=== PATIENT | female | born 1990 | race Caucasian/White ===

== ENCOUNTER 2016-09-12 13:36 | Emergency (ER) | payer MEDICAID ==
[2016-09-12] MEDS ORDERED: TETRACAINE 0.5% 15 ML OPHT.BTL LEFTEYE ONE (14:08)
[2016-09-12] MEDS ORDERED: FLUORESCEIN SODIUM 1 MG STRIP OP ONE ×2 (14:08)
[2016-09-12] MEDS ORDERED: PROPARACAINE 0.5% 15 ML OPHT DROP ONE (14:08)
--- NOTE | 2016-09-12 14:21 | EDPHY ---
General Time Seen by Provider: 09/12/16 13:58 Narrative: CHIEF COMPLAINT: Left eye pain o HISTORY OF PRESENT ILLNESS: patient states she accidentally soaked her contact lens in a stronger solution than she should. This was over night and then she placed contacted around 12:30 p.m.. She immediately noted pain in the left eye removed the contact. Since then she has had moderate pain on the left eye and associated headache. She has no change in her vision other than it is painful to open the eye. No trauma to the eye. No previous incidents of this. Pain is improved at time of examination. Her pain has improved. She contacted her ophthalmology group and they recommended that she present to the emergency department. No other associated complaints or modifying factors. Tetanus is up- to-date. REVIEW OF SYSTEMS: Ten systems reviewed and are negative unless otherwise noted in the HPI EXAMINATION General Appearance: Alert, no distress Head: normocephalic, atraumatic Eyes: Pupils equal and round . EOMs intact. No hyphema. There is left conjunctival injection. No foreign body. No fluoroscein uptake. Visual arnold intact ENT, Mouth: Mucous membranes moist Neck: Normal inspection, supple, non-tender Respiratory: no respiratory distress Skin: Warm and dry, no rash Extremities: Nontender, no pedal edema Psychiatric: Mood and affect normal Visual Acuity: R: 20/25 L: 20/50 B: 20/30 DIFFERENTIAL DIAGNOSES: Including but not limited to chemical exposure, abrasion, pH disturbance MDM: chemical exposure of the left eye involving clear care contact solution with 3 % hydrogen peroxide. Her eyes feeling better at time of examination was still painful. There is no uptake of fluorescein on examination. EOMs are intact. The initial check of her pH was 8.0. We will irrigate the eye and recheck. 2:30 p.m. discussed the case with the on-call viticulture teacher Dr. Norwood. he recommends prophylaxis with Polytrim ointment as well as preservative-free artificial tears. She can use the tears as much as she needs to p.r.n. throughout the day. She is to follow up with her established legal investigator tomorrow if she does not improve but he feels that she will feel much better tomorrow morning from this. Recommend she return to the emergency department if her pain worsens or for any change in her vision throughout the day. I discussed with the patient she is comfortable with this plan SUPERVISION: This patient was independently evaluated without the aide of supervising physician. - History Smoking Status: Current some day smoker - Objective Vital Signs: Initial Vital Signs Temperature (C) 98.1 F 09/12/16 13:42 Heart Rate 72 09/12/16 13:42 Respiratory Rate 22 H 09/12/16 13:42 Blood Pressure 138/99 H 09/12/16 13:42 O2 Sat (%) 100 09/12/16 13:42 O2 Delivery Mode Room Air Allergies/Adverse Reactions: Penicillins Allergy (Verified 09/12/16 13:41) Home Medications: Medication Instructions Recorded LAMOTRIGINE 11/12/15 Polymyxin B Sulfate/Tmp [Polytrim 1 drops EACHEYE Q3HRS WHILE AWAKE 09/12/16 Opht Drops (*)] #1 bottle Medications Given: Discontinued Medications Fluorescein Sodium (Pvays-R-Cdtpq) 1 mg OP EDNOW ONE Stop: 09/12/16 14:09 Last Admin: 09/12/16 14:31 Dose: 1 mg Tetracaine HCl (Tetracaine 0.5%) 1 drops LEFTEYE ONCE ONE Stop: 09/12/16 14:09 Last Admin: 09/12/16 14:30 Dose: 1 drop Departure - Departure Disposition: Home, Routine, Self-Care Clinical Impression: Exposure to chemical irritant, Left eye pain Condition: Good Instructions: Chemical Eye [place] (ED) Additional Instructions: Follow-up with viticulture teacher or legal investigator later today or in the morning. Return to the ER for any changes in her vision or worsening pain. No contacts until seen by her eye doctor Referrals: Karma Rosa MD [Medical Doctor] - As per Instructions Prescriptions: Polymyxin B Sulfate/Tmp [Polytrim Opht Drops (*)] 1 drops EACHEYE Q3HRS WHILE AWAKE #1 bottle
[2016-09-12 15:42] VITALS: BP 132/71; PULSE 80; RESP 16; TEMP 97.9; O2SAT 96
== END 2016-09-12 15:42 | disposition home or self-care (01) ==
DX: H57.12 Ocular pain, left eye (principal); F17.200 Nicotine dependence, unspecified, uncomplicated; Z77.098 Contact with and (suspected) exposure to other hazardous, chiefly nonmedicinal, chemicals

== ENCOUNTER 2016-10-31 14:05 | Emergency (ER) | payer MEDICAID ==
[2016-10-31 14:13] VITALS: BP 150/80; PULSE 90; RESP 18; TEMP 99; O2SAT 99
--- NOTE | 2016-10-31 14:17 | EDPHY ---
H & P Stated Complaint: took 600mg lamictal this morning 300 last night Time Seen by Provider: 10/31/16 14:16 - Personal History LMP (Females 10-55): Now Current Tetanus Diphtheria and Acellular Pertussis (TDAP): Yes Tetanus Vaccine Date: 2013 - Medical/Surgical History Hx Asthma: Yes Hx Chronic Respiratory Disease: No Hx Diabetes: No Hx Cardiac Disease: No Hx Renal Disease: No Hx Cirrhosis: No Hx Alcoholism: No Hx HIV/AIDS: No Hx Splenectomy or Spleen Trauma: No Other PMH: Bipolar, Asthma - Social History Smoking Status: Current some day smoker Constitutional: Initial Vital Signs Temperature (C) 37.2 C 10/31/16 14:10 Heart Rate 90 10/31/16 14:10 Respiratory Rate 18 10/31/16 14:10 Blood Pressure 150/80 H 10/31/16 14:10 O2 Sat (%) 99 10/31/16 14:10 O2 Delivery Mode Room Air Allergies/Adverse Reactions: Penicillins Allergy (Verified 10/31/16 14:13) Home Medications: Medication Instructions Recorded LAMOTRIGINE 11/12/15 Medical Decision Making ED Course/Re-evaluation: CHIEF COMPLAINT: Rash, Lamotrigine overdose. HISTORY OF PRESENT ILLNESS: The patient is a 26-year-old female who presents with rash, nausea, and lightheadedness after taking 900mg Lamotrigine instead of her 300mg. This was accidental and not done with suicidal intentions. She denies throat swelling, tongue swelling, difficulty breathing, or other complaints. REVIEW OF SYSTEMS: A 10 point review of systems was performed and is negative with the exception of the elements mentioned in the history of present illness. PHYSICAL EXAM: HR, BP, O2 Sat, RR. Temp noted General Appearance: Alert, well hydrated, appropriate, and non-toxic appearing. Head: Atraumatic without scalp tenderness or obvious injury Eyes: Pupils equal, round, reactive to light and accommodation, EOMI, no trauma , no injection. Ears: Clear bilaterally, no perforation, normal landmarks Nose: Atraumatic, no rhinorrhea, clear. Throat: There is no erythema or exudates, no lesions, normal tonsils, mucus membranes moist. Neck: Supple, 2+ carotid upstroke, nontender, no lymphadenopathy. Respiratory: No retractions, no distress, no wheezes, and no accessory muscle use. Lungs are clear to auscultation bilaterally. Cardiovascular: Regular rate and rhythm, no murmurs, rubs, or gallops. Bilateral carotid, radial, dorsalis pedis, and posterior tibial pulses intact. Good capillary refill all extremities. Gastrointestinal: Abdomen is soft, nontender, non-distended, no masses, no rebound, no guarding, no peritoneal signs. Musculoskeletal: Normal active ROM of all extremities, atraumatic. Neurological: Alert, appropriate, and interactive. The patient has normal DTRs and non-focal cranial nerves, motor, sensory, and cerebellar exam. Skin: No rashes, good turgor, no nodules on palpation. Past medical history: Bipolar, asthma. Past surgical history: Denies. Family history: N/A. Social history: Here with friend. DIFFERENTIAL DIAGNOSIS: The differential diagnosis includes but is not limited to: drug overdose, medicine reaction. MEDICAL DECISION MAKIN-year-old female presents with rash, nausea, and lightheadedness after taking 900mg Lamotrigine. She thought her pills were 100mg when they were actually 300mg. She is not complaining of breathing difficulties or oral swelling. Her lungs are normal on exam. I will consult with Poison Control to determine the best course of treatment. 1425: Consulted with [facility] nurse. . He reports that no workup and no monitoring is required for an overdose of this level. I discussed this with the patient. She understands to follow up with her doctor for ongoing concerns. She is comfortable with the plan. I will give her a prescription for Zofran for ongoing nausea. Departure - Departure Disposition: Home, Routine, Self-Care Clinical Impression: Overdose of drug/medicinal substance Qualifiers: Encounter type: initial encounter Injury intent: accidental or unintentional Qualified Code(s): T50.901A - Poisoning by unspecified drugs, medicaments and biological substances, accidental (unintentional), initial encounter Condition: Good Instructions: Adult Overdose (ED) Additional Instructions: Take your Lamotrigine as prescribed. Follow up with your primary care provider or psychiatrist for reevaluation this week if you have ongoing concerns Return to the emergency department for any serious worsening of condition.
[2016-10-31] MEDS ORDERED: ONDANSETRON 4MG PREPACK#2 BTL TAKEHOME ONE (14:32)
== END 2016-10-31 14:44 | disposition home or self-care (01) ==
DX: T42.6X1A Poisoning by other antiepileptic and sedative-hypnotic drugs, accidental (unintentional), initial encounter (principal); J45.909 Unspecified asthma, uncomplicated; F17.200 Nicotine dependence, unspecified, uncomplicated